=== PATIENT | female | born 1950 | race Caucasian/White ===

== ENCOUNTER 2019-04-25 21:24 | Inpatient (IN) ==
[2019-04-25 22:25] LABS: BASO# 0.02 X1000 (0.0-0.2); BASO% 0.2 % (0.0-0.8); EOS# 0.01 X1000 (0.0-0.7); EOS% 0.1 % (0.0-10.0); HEMATOCRIT 43.6 % (37.0-47.0); HEMOGLOBIN 14.9 g/dL (12.0-16.0); IMM GRAN# 0.07 X1000 (0.0-0.04); IMM GRAN% 0.6 % (0.0-0.5); LYMPH# 1.43 X1000 (1.2-3.4); LYMPH% 12.6 % (20.5-51.1); MCH 29.6 PG (27-31); MCHC 34.2 g/dL (33-37); MCV 86.7 FL (81-99); MONO# 0.51 X1000 (0.11-0.59); MONO% 4.5 % (1.7-9.3); MPV 10.2 FL (7.4-10.4); PLT 272 X1000 (130-400); RBC 5.03 XMIL (4.2-5.4); RDW 12.9 % (11.5-14.5); WBC 11.34 X1000 (4.8-10.8)
[2019-04-25 22:52] LABS: INR 0.98; PROTIME 13.1 Seconds (11.0-16.0)
[2019-04-25 22:53] LABS: PTT 26.6 Seconds (22.3-41.8)
[2019-04-25 22:56] LABS: ALB/GLOB RATIO 1.5; ALBUMIN 4.4 g/dL (3.5-5.0); CALCIUM 9.7 mg/dL (8.8-10.2); CREATININE 1.3 mg/dL (0.5-0.9); POTASSIUM 3.9 mmol/L (3.5-5.1); TOTAL BILIRUBIN 0.38 mg/dL (0.20-1.00); TOTAL PROTEIN 7.3 g/dL (6.3-8.3)
[2019-04-25] MEDS ORDERED: NS 1,000 ML IV ONE (23:29)
[2019-04-25] MEDS ORDERED: BENTYL PO ONE (23:29)
--- NOTE | 2019-04-25 23:55 | PROVIDER DOCUMENTATION ---
This chart was entered by Sarah Cochran Scribe, acting as scribe for Ryder Ibarra DO. HPI-Abdominal Pain/GI Problem - General Chief Complaint: GI Bleed Stated Complaint: possible gi bleed Time Seen by Provider: 04/25/19 21:58 Source: patient Allergies/Adverse Reactions: Patient Allergies Allergy/AdvReac Type Severity Reaction Status Date / Time Penicillins Allergy Severe ANAPHYLAXIS Verified 03/26/14 05:02 Home Medications: Home Medication List Medication Instructions Recorded Confirmed Last Taken Type Hydrocodone/APAP 10 mg/325 mg 1 each PO Q4H PRN PRN #0 tablet 03/31/14 Unknown Rx [[place]-10] LISINOpril [Prinivil] 20 mg PO DAILY #0 tablet 03/31/14 Unknown Rx - History of Present Illness-ABD Nature of Presenting Problems: Pt is 69/F presenting to ED w/ epigastric pain, blood in diarrhea as well as vomiting. Pt sts that the sx started around 2:30 today and have gotten worse. She has had about 5 episodes of bloody diarrhea and 3 of vomiting, those did not have any blood. Pt sts that she is now dizzy and has a headache as well. hx of hemorrhoids. Abdominal Pain Onset Location: reports: epigastric Pain Radiation: reports: no radiation Quality of Pain: reports: tightness Severity in ED: reports: moderate Onset/Duration: reports: 4-6 hours ago Timing: reports: still present Activities at Onset: reports: none Exposure to sick contacts?: No Modifying Factors: improves with: nothing Associated Symptoms: reports: chest pain, diarrhea, dizziness, headaches, nausea , vomiting. denies: fatigue, shortness of breath Last BM: this evening Dark Stools Present?: reports: bright red blood Rectal Bleeding: reports: blood mixed with stool Rectal Pain: reports: none Emesis Description: reports: clear Bruising or Bleeding Gums?: No Similar Symptoms Previously?: No Recently seen or treated by another doctor?: No Review of Systems - Adult - REVIEW OF SYSTEMS - ADULT Constitutional: reports: no symptoms reported Eyes: reports: no symptoms reported Ears, Nose, Mouth & Throat: reports: no symptoms reported Cardiovascular: reports: no symptoms reported, chest pain Respiratory: reports: no symptoms reported Gastrointestinal: reports: no symptoms reported. denies: abdominal pain, nausea, vomiting Genitourinary: reports: no symptoms reported Musculoskeletal: reports: no symptoms reported Integumentary: reports: no symptoms reported Neurological: reports: dizziness/vertigo, headache/migraines Psychiatric: reports: no symptoms reported Endocrine: reports: no symptoms reported Hematologic/Lymphatic: reports: no symptoms reported Allergic/Immunologic: reports: no symptoms reported All Other Systems: Reviewed and Negative Past History - Adult - PAST MEDICAL HISTORY-ADULT Review of Records: reports: Old Records Reviewed, Nursing Assessment Review, Medications Reviewed, Social history reviewed & non-contributory. Cardiovascular: reports: HTN. denies: CAD, CHF Respiratory: reports: denies history Gastrointestinal: reports: denies history - SOCIAL HISTORY Smoking: denies, non-smoker Substance Use: none/never Living Situation: family Physical Exam-General - PHYSICAL EXAM-ADULT Initial Vital Signs Reviewed: Yes - CONSTITUTIONAL General Appearance: appears well, alert, mild distress - EYES Eyes: PERRL/EOMI, pink conjunctivae - HEAD, EARS, NOSE, MOUTH & THROAT HENMT: normocephalic/atraumatic, moist mucous membranes, normal ENT inspection, TMs normal, pharynx normal - NECK Neck: non-tender, full range of motion, supple, normal inspection - RESPIRATORY Respiratory: lungs clear, other (chest tenderness upon palpation) - CARDIOVASCULAR Cardiovascular: regular rate, rhythm - GASTROINTESTINAL (ABDOMEN) Abdominal Exam: tenderness - GENITOURINARY Rectal Exam: normal exam, normal rectal tone, hemorrhoids. negative: black stool - LYMPHATIC Lymphatic: no adenopathy - MUSCULOSKELETAL Back Exam: normal inspection Extremity: normal range of motion, non-tender, normal gait, normal inspection - SKIN Integumentary: normal color, warm/dry - NEUROLOGIC Neurologic: grossly normal - PSYCHIATRIC Psych/Mental Status: normal mood/affect, normal thought content, normal thought process, oriented x 3 Progress - PLAN OF CARE/RESULTS Progress/Plan/Lab Results: Orders Category Date Time Status Saline Loc NOW Care 04/25/19 21:57 Active AMYLASE [CHEM] Stat Lab 04/25/19 22:02 Received CBC WITH ELECTRONIC DIFF [HEME] Stat Lab 04/25/19 22:02 Results CK PROFILE [SP CHEM] Stat Lab 04/25/19 22:02 Received COMPREHENSIVE METABOLIC PANEL [CHEM] Stat Lab 04/25/19 22:02 Received LIPASE [CHEM] Stat Lab 04/25/19 22:02 Received OCCULT BLOOD SCREENING [STOOL] Stat Lab 04/25/19 22:18 Ordered PROTIME WITH INR [COAG] Stat Lab 04/25/19 22:02 Received PTT [COAG] Stat Lab 04/25/19 22:02 Received TROPONIN T Stat Lab 04/25/19 22:02 Received TYPE & SCREEN [BBK] Stat Lab 04/25/19 22:14 Received EKG [EKG] Stat Ther 04/25/19 21:53 Ordered Result Diagrams: 04/25/19 22:02 04/25/19 22:02 - EKG 1 Time of EKG reading by physician:: 22:16 EKG Read and Signed by:: Ryder Ibarra EKG Interpretation (*Must complete 3 of following elements*): Abnormal (sinus tachycardia, Nonspecific ST and T wave abnormality, Abnormal ECG) Rate: 106 Rhythm: sinus tachycardia [place]: normal QRS: normal - CONSULTS/PCP/HOSPITALIST Notification #1 *Consult/PCP/Hospitalist*: Lucius Time Discussed: 23:50 Reason/Comments: will admit/see in ED Consult Disposition: Admit Departure - Departure Date of Disposition Decision: 04/25/19 Time of Disposition Decision: 23:54 DIAGNOSIS: Rectal bleeding, Abdominal pain Disposition: ADMITTED INPATIENT 09 Certified Medical Emergency: Emergent Condition: Stable Referrals and Follow-Ups: Duke Kan MD [Primary Care Provider] - - Critical Care Note This patient required my direct & personal management of CC.: Yes Attestation - Physician/ JOSSUE Attestation Patient care was provided by Advanced Practice Provider:: No The physician spent face to face time with patient:: Yes Advanced Practice Provider documentation review:: Supervising physician onsite and consulted in the evaluation and care of this patient. The physician did have a face to face encounter with the patient. This chart was documented by the indicated scribe, (Sarah Cochran, [place]) and accurately reflects the services I performed and decisions made by , Ryder Ibarra DO, as attested by the provider's signature.
[2019-04-26] MEDS ORDERED: PHENERGAN IV ONE (00:14)
[2019-04-26] MEDS ORDERED: SODIUM CHLORIDE 0.9% INJ ONE (00:14)
[2019-04-26 02:18] LABS: HEMOGLOBIN A1C 6.3 % (4.8-6.0)
[2019-04-26] MEDS ORDERED: SODIUM CHLORIDE 0.9% INJ PRN (02:25)
--- NOTE | 2019-04-26 02:36 | HISTORY AND PHYSICAL ---
CHIEF COMPLAINT: Blood in stool. HISTORY OF PRESENT ILLNESS: Ms. Rodriguez is a pleasant 69-year-old female who comes in tonight after having a day worth of nausea and vomiting and started having bright red blood in her stool. Stated that it was liquid diarrhea with blood that started yesterday around 2:30 p.m. and consistently got worse. She had around 5 episodes of bloody diarrhea, 3-4 episodes of vomiting. There was no blood in her emesis. She did complain of dizziness yesterday as well as a headache. She does have a history of migraines as well, as well as a history GERD, hemorrhoids and hypertension. Stated that overall she just continued to feel dizzy today and then the blood in her stools began so she came into the emergency room. Occult stool was tested which was positive for blood. Her hemoglobin and hematocrit were stable. She will be admitted to the medical floor for further evaluation and treatment. PAST MEDICAL HISTORY: See HPI. She has had epidural blocks in her back. PREVIOUS SURGICAL HISTORY: 1. Cholecystectomy. 2. Partial hysterectomy, then total hysterectomy. SOCIAL HISTORY: Lives at home with family. No alcohol, tobacco or illicit drugs. FAMILY HISTORY: Father had lung and brain cancer. Mother had hypertension and dementia. ALLERGY: Penicillin causing anaphylaxis. REVIEW OF SYSTEMS: Fourteen-point review of systems conducted with the patient. Pertinent positives listed above in the HPI. All other systems reviewed and found to be negative. PHYSICAL EXAMINATION: VITAL SIGNS: Temperature 97.5, pulse 90, respirations 16, blood pressure 123/99, oxygen saturation 96% on room air. GENERAL: A pleasant, obese 69-year-old female lying in the ER stretcher, answers all questions appropriately. She is alert and oriented times 3. HEENT: Head is atraumatic, normocephalic. Pupils equal, round, reactive to light. Extraocular eye movement intact. Sclerae are anicteric. Conjunctiva is pink. Oral mucosa is mildly dry. NECK: Supple. No JVD. No thyromegaly. Trachea is midline. No cervical lymphadenopathy. CARDIAC: S1, S2 appreciated. No murmurs, gallops, rubs. LUNGS: Clear to auscultation bilaterally. No rhonchi, wheezes, rales. Symmetric rise and fall with respirations. ABDOMEN: Soft, nondistended, tender diffusely, greatest area of tenderness in the left lower quadrant. Bowel sounds present all 4 quadrants, normoactive. No pulsatile mass. No organomegaly. EXTREMITIES: No clubbing, cyanosis. One-plus pitting edema in bilateral feet. Trace edema from mid calf down, nonpitting. Two-plus pedal pulses. GENITOURINARY: No bladder distention. Patient voids. Otherwise deferred. NEUROLOGICAL: Alert and oriented times 3. Cranial nerves 2 through 12 grossly intact. DIAGNOSTIC DATA: CT of the abdomen and pelvis is pending. LABORATORY DATA: WBC 11.34. Hemoglobin 14.9. Hematocrit 43.6. Platelet count 272. Sodium 140. Potassium 3.9. Chloride 97. Carbon dioxide 22. BUN 26. Creatinine 1.3. Glucose 181. ASSESSMENT AND PLAN: 1. Gastrointestinal bleed, is likely a lower gastrointestinal bleed. We will start Nexium IV 40 mg q.12 hours. Consult GI. Trend hemoglobin and hematocrit. NPO after midnight. 2. Fluid volume depletion, aware. 3. Acute kidney injury secondary to number 2. She was given fluids in the emergency room which will be continued. Recheck laboratory data. 3. Hyperglycemia. Check hemoglobin A1c. Patient does not carry a diagnosis of diabetes mellitus. 4. Gastroesophageal reflux disease, aware. See above. Further recommendations per patient clinical course. Dictated by EZ Zambrano for Duke Kan MD cc: EZ Zambrano MD
[2019-04-26] MEDS: NS 1,000 ML IV SCH ×2 (02:46→15:34)
[2019-04-26] MEDS: SODIUM CHLORIDE 0.9% INJ SCH ×2 (02:46→12:40)
[2019-04-26] MEDS: NEXIUM IV SCH ×2 (02:46→12:40)
--- NOTE | 2019-04-26 03:36 | HISTORY AND PHYSICAL ---
ADDENDUM: Patient seen and examined by myself. Full note dictated and discussed with nurse practitioner. Patient presented to the hospital after feeling dizzy, lightheaded and headaches. Typically takes Excedrin Migraine only when she has a severe headache and she did take some over the past day or so. She also complains of diarrhea. Denies any hematemesis. States that she has had bright red blood in her stool. She has had abdominal pain. Has a history of gallbladder surgery and hysterectomy. Does not smoke or drink. We are going to admit her to the hospital. Hemoglobin and hematocrit currently are perfectly stable at 14 and 36. Creatinine is mildly elevated at 1.3 with her previous at 0.8 and BUN is elevated at 26 with her previous from 2014 at 7. Check serial hemoglobin and hematocrit. CT is pending and we will follow. cc: Duke Kan MD
--- NOTE | 2019-04-26 05:34 | Diag Imaging Result Doc PS360 ---
EXAM: CT ABDOMEN/PELVIS W/O CONTRAST HISTORY: abdominal pain/ rectal bleeding TECHNIQUE: CT abdomen and pelvis without oral or intravenous contrast COMPARISON: None. FINDINGS: There is fatty infiltration of the liver. The gallbladder has been removed. Tiny hiatal hernia. Normal spleen, pancreas, and adrenal glands. No renal stones. No hydronephrosis. No aortic aneurysm. Mild atherosclerosis. No inflammation about the cecum. No abscess. No bowel obstruction. There are scattered colonic diverticula. The mid and distal colon are not distended. The uterus has been removed. No pelvic mass. The urinary bladder is not distended. IMPRESSION: 1.Small hiatal hernia 2.There is fatty infiltration of the liver 3.Cholecystectomy 4.Colonic diverticulosis 5.Hysterectomy 6.A preliminary report was given at 12:57 AM This exam was performed using automated exposure control, adjustment of mA or kV according to patient size, and/or use of iterative reconstruction technique. Electronically signed by Geoffrey Dorsey 04/26/2019 5:31 AM
[2019-04-26 06:34] LABS: BASO# 0.02 X1000 (0.0-0.2); BASO% 0.2 % (0.0-0.8); EOS# 0.04 X1000 (0.0-0.7); EOS% 0.4 % (0.0-10.0); HEMATOCRIT 41.2 % (37.0-47.0); HEMOGLOBIN 13.6 g/dL (12.0-16.0); IMM GRAN# 0.03 X1000 (0.0-0.04); IMM GRAN% 0.3 % (0.0-0.5); LYMPH# 2.18 X1000 (1.2-3.4); LYMPH% 20.1 % (20.5-51.1); MCH 29.5 PG (27-31); MCV 89.4 FL (81-99); MONO# 0.99 X1000 (0.11-0.59); MONO% 9.1 % (1.7-9.3); MPV 9.9 FL (7.4-10.4); NEUT% 69.9 % (42.2-75.2); PLT 244 X1000 (130-400); RBC 4.61 XMIL (4.2-5.4); RDW 13.1 % (11.5-14.5); WBC 10.86 X1000 (4.8-10.8)
[2019-04-26 06:57] LABS: CREATININE 1.1 mg/dL (0.5-0.9); POTASSIUM 4.1 mmol/L (3.5-5.1)
[2019-04-26 11:45] LABS: HEMATOCRIT 40.5 % (37.0-47.0); HEMOGLOBIN 13.4 g/dL (12.0-16.0)
[2019-04-26] MEDS: FLAGYL 250 MG/NS 250 MG/50 ML IVPB IV SCH ×3 (12:17→22:08)
[2019-04-26] MEDS: CIPRO 400 MG/D5W 400 MG/200 ML IVPB IV SCH ×2 (12:40→22:59)
[2019-04-26] MEDS: FIORICET PO PRN (12:40)
--- NOTE | 2019-04-26 13:17 | PROGRESS NOTE ---
DATE: 04/26/2019 SUBJECTIVE: Ms. Rodriguez was admitted early this morning, a patient of Dr. Duke Kan. She presented to the hospital feeling dizzy, lightheaded, headaches. She typically takes Excedrin migraine. She has severe headache and she did take several in the last day or so. She had some bright red blood in her stool and some epigastric discomfort. She has a history of gallbladder surgery, cholecystectomy and hysterectomy. PAST MEDICAL HISTORY: 1. Status post cholecystectomy. 2. Partial hysterectomy and then total hysterectomy. Admitted with gastrointestinal bleed and put on Nexium 40 mg q.12h. Follow hemoglobin and hematocrit, hematocrit 40, hemoglobin 13. Electrolytes unremarkable. Hemoglobin A1c was 6.3. IMPRESSION: 1. Gastrointestinal bleed. Started on Nexium 40 mg IV q.12h. GI will follow. 2. Fluid volume depletion. Aware. 3. Acute kidney injury secondary to #2. 4. Hyperglycemia. Hemoglobin A1c looks appropriate. 5. Gastroesophageal reflux disease. Creatinine has come down to 1.1. We will go ahead. I think she is on full liquid diet. Dr. Caicedo to see. She was having some diarrhea and complained of loose stool. She has no history of recent antibiotics. Dr. Caicedo has started her on Flagyl and ciprofloxacin. cc: Shantanu Mirza MD
--- NOTE | 2019-04-26 14:24 | PALLIATIVE CARE CONSULTATION ---
DATE: 04/26/2019 Malini Rodriguez who is a pleasant 69-year-old lady who was having nausea, vomiting and diarrhea that started the day before. After several episodes she had bright red blood in the stool and felt dehydrated and dizzy. She came in with a normal H and H and admitted for hydration and further management. She is currently on BPA. PAST MEDICAL HISTORY: Epidural back. PREVIOUS SURGICAL HISTORY: Cholecystectomy, partial hysterectomy and total hysterectomy. SOCIAL HISTORY: Lives at home. No alcohol, tobacco or drugs. FAMILY HISTORY: Positive for lung and brain cancer. ALLERGIES: Penicillin. REVIEW OF SYSTEMS: Otherwise negative other than the dizziness. PHYSICAL EXAMINATION: Vital Signs: Temperature 97 degrees, pulse 90, respirations 16, blood pressure 123/99, O2 saturation 96. General: Obese 69-year-old lady in no acute distress. HEENT: No scleral icterus or conjunctival pallor. She appears to be hydrated now. Heart: Normal. Lungs: Normal. Abdomen: Soft, nondistended. Mild diffuse tenderness. No rebound, guarding or rigidity. Bowel sounds present. Extremities: Unremarkable. Neurological: Negative. LABORATORY DATA: Hemoglobin and hematocrit is stable. Creatinine has come down to 1.1. IMPRESSION AND PLAN: 1. Gastroenteritis. The bleed could be from the diarrhea and such as hemorrhoids. There is no evidence of any proctitis and colitis on CT. However we will treat with 24 hours of antibiotics. 2. Fluid depletion is getting better. 3. Mild acute kidney injury has been corrected. 4. GERD. Continue symptomatic treatment. I will review her records to see when she had a endoscopy done but I do not think she needs any endoscopy at this point. Advance the diet as tolerated. cc: MD Shantanu Armstrong MD
[2019-04-26 17:54] LABS: HEMATOCRIT 41.9 % (37.0-47.0); HEMOGLOBIN 13.9 g/dL (12.0-16.0)
[2019-04-27 00:46] LABS: HEMATOCRIT 37.1 % (37.0-47.0); HEMOGLOBIN 12.3 g/dL (12.0-16.0)
[2019-04-27] MEDS: SODIUM CHLORIDE 0.9% INJ SCH (00:50)
[2019-04-27] MEDS: NEXIUM IV SCH ×2 (00:50→17:47)
[2019-04-27] MEDS: NS 1,000 ML IV SCH ×2 (03:49→17:45)
[2019-04-27] MEDS: FLAGYL 250 MG/NS 250 MG/50 ML IVPB IV SCH ×4 (03:49→23:00)
[2019-04-27 06:58] LABS: HEMATOCRIT 36.6 % (37.0-47.0); HEMOGLOBIN 11.9 g/dL (12.0-16.0)
[2019-04-27] MEDS: CIPRO 400 MG/D5W 400 MG/200 ML IVPB IV SCH ×2 (11:01→22:40)
[2019-04-27] MEDS: FIORICET PO PRN (11:01)
[2019-04-27] MEDS: MORPHINE IV PRN ×2 (11:41→20:33)
[2019-04-27] MEDS: PHENERGAN IV PRN (11:41)
[2019-04-27 12:24] LABS: HEMATOCRIT 39.9 % (37.0-47.0); HEMOGLOBIN 13.1 g/dL (12.0-16.0)
--- NOTE | 2019-04-27 13:22 | PROGRESS NOTE ---
DATE: 04/27/2019 SUBJECTIVE: Ms. Rodriguez says she just does not feel good. She had some dark stools with dark black, it sounds like melena, and a lot of cramping in her abdomen. OBJECTIVE: Temperature 98.0, pulse 58, respirations 16, blood pressure 140/63. Pupils are equal and round. No distended neck veins. Lungs are clear in all lung campos. Cardiovascular Examination: Regular rhythm and rate without murmur or S3. Urine output is 2500 mL. ASSESSMENT AND PLAN: 1. Gastroenteritis. Could be bleeding from the diarrhea, from hemorrhoids, but she has some dark stools as well so could have upper gastrointestinal irritation as well. There is no evidence of proctitis or colitis on CT scan. Continue present antibiotics. 2. Fluid depletion, getting better. 3. Mild acute kidney injury, which is corrected. 4. Gastroesophageal reflux disease. REVIEW OF ORDERS: She is on Nexium 40 mg IV q.12, on Flagyl 250 mg IV q.6, and Cipro 400 mg IV q.12. Continue present fluids. Hematocrit is 39, hemoglobin 13. Electrolytes look good. Creatinine has come down from 1.3 to 1.1. She is on full liquid diet at this time. For her headaches, we are giving her Fioricet. cc: Shantanu Mirza MD
[2019-04-28] MEDS: FLAGYL 250 MG/NS 250 MG/50 ML IVPB IV SCH ×4 (04:31→21:48)
[2019-04-28] MEDS: NEXIUM IV SCH ×2 (06:13→18:56)
[2019-04-28] MEDS: CIPRO 400 MG/D5W 400 MG/200 ML IVPB IV SCH ×2 (11:14→21:49)
[2019-04-28] MEDS ORDERED: DIPRIVAN 1% ONE (11:50)
[2019-04-28] MEDS ORDERED: XYLOCAINE-MPF 2% ONE (11:51)
--- NOTE | 2019-04-28 12:49 | PROGRESS NOTE ---
DATE: 04/28/2019 SUBJECTIVE: Ms. Rodriguez is feeling much better today. They are planning on doing an EGD this morning. OBJECTIVE: Temperature 98.1 degrees, pulse 64, respirations 15, blood pressure 171/81. Blood pressures have been between 141-171/56-81. Lungs are clear in all lung campos. Cardiovascular Examination: Regular rhythm and rate without murmur or S3. Abdomen is soft. Skin is warm and dry. ASSESSMENT AND PLAN: 1. Gastroenteritis, having bleeding from diarrhea and possibly from hemorrhoids. It is bright red blood. She also had some dark stools, possible melena. 2. Fluid depletion, which is resolved. 3. Mild acute kidney injury, which is corrected. 4. History of gastroesophageal reflux disease. LABS: Her lab from yesterday, hematocrit was stable at 39, hemoglobin 13. I think the plan is for an EGD this morning. cc: Shantanu Mirza MD
[2019-04-28] MEDS ORDERED: FENTANYL ONE (13:12)
--- NOTE | 2019-04-28 13:46 | ENDOSCOPY OPERATIVE NOTE ---
[facility]IVE NOTE , PATIENT: Malini Rodriguez ADMISSION DATE: 04/28/2019 [facility] [id number] [facility] 1950 [id number] EGD PROCEDURE REPORT PROCEDURE DATE: 04/28/2019 SURGEON: Andrew Pastor MD STATUS: inpatient APPLICATION PERFORMANCE ENGINEER: Caroline Jerez and Patrice Hensley PREOPERATIVE DIAGNOSIS: The patient is a 69 yr old female here for an EGD due to epigastric abdomina l pain, nausea, and vomiting. PROCEDURE PERFORMED: EGD w/ biopsy MEDICATIONS: Per Anesthesia TOPICAL ANESTHETIC: none CONSENT: The patient understands the risks and benefits of the procedure and understands that these r isks include, but are not limited to: sedation, allergic reaction, infection, perforation and/or bleeding. Alternative means of evaluation and treatment include, among others: physical exam, x-rays, and/or surgical intervention. The patient elects to proceed with this endoscopic procedure. HISORY AND PHYSICAL: 04/28/2019 function. Hand hygiene and appropriate measures for infection prevention was taken. After the risks, benefits and alternatives of the procedure were thoroughly explained, Informed consent was verified, confirmed and timeout was successfully executed by the treatment team. The patient was anesthetized with topical anesthesia and the [id number] ([id number]) endoscope was introduced through the mouth and advanced to the second portion of the duoden um. Retroflexion was performed in the stomach and revealed no abnormalities. The gastroscope was then slowly withdraw n and removed. ESOPHAGUS: The mucosa of the esophagus appeared normal. STOMACH: Mild gastritis (inflammation) was found in the gastric antrum. Multiple biopsies were perfo rmed using cold forceps. Sample sent for histology. There was no evidence of AVM, Ulcers or tumors noted. DUODENUM: The duodenal mucosa showed no abnormalities. SPECIMENS REMOVED: No ADVERSE EVENTS: There were no complications. POSTOPERATIVE DIAGNOSIS: 1. The mucosa of the esophagus appeared normal 2. Gastritis (inflammation) was found in the gastric antrum; multiple biopsies were performed 3. The duodenal mucosa showed no abnormalities RECOMMENDATIONS: 1. Follow-up biopsy results in 2 weeks 2. Start Clear liquid diet for 2 Day(s) 3. Return to floor when standard parameters are met 4. Schedule for colonoscopy tomorrow. REPEAT EXAM: Andrew Pastor MD eSigned: Andrew Pastor MD 04/28/2019 1:46 PM cc: PATIENT NAME: Malini Rodriguez MR#: [id number]
[2019-04-28] MEDS ORDERED: GOLYTELY PO ONE (14:00)
[2019-04-28] MEDS: NS 1,000 ML IV SCH (16:40)
[2019-04-28] MEDS: PHENERGAN IV PRN (18:56)
[2019-04-29] MEDS: FLAGYL 250 MG/NS 250 MG/50 ML IVPB IV SCH ×4 (04:24→21:47)
[2019-04-29] MEDS: NS 1,000 ML IV SCH ×3 (04:25→10:57)
[2019-04-29] MEDS: NEXIUM IV SCH ×2 (06:04→06:30)
[2019-04-29] MEDS: PRILOSEC PO SCH ×2 (06:10→10:57)
[2019-04-29] MEDS: SODIUM CHLORIDE 0.9% INJ SCH (06:30)
[2019-04-29] MEDS ORDERED: SODIUM CHLORIDE 0.9% INJ SCH (07:00)
[2019-04-29 07:14] LABS: HEMATOCRIT 34.5 % (37.0-47.0); HEMOGLOBIN 11.3 g/dL (12.0-16.0); MCHC 32.8 g/dL (33-37); MCV 91.5 FL (81-99); MPV 9.7 FL (7.4-10.4); RBC 3.77 XMIL (4.2-5.4); RDW 13.2 % (11.5-14.5); WBC 6.93 X1000 (4.8-10.8)
[2019-04-29] MEDS ORDERED: XYLOCAINE-MPF 2% ONE (07:24)
[2019-04-29] MEDS ORDERED: ROBINUL ONE (07:24)
[2019-04-29] MEDS ORDERED: DIPRIVAN 1% ONE ×2 (07:24→08:10)
[2019-04-29 07:53] LABS: CALCIUM 8.4 mg/dL (8.8-10.2); POTASSIUM 3.6 mmol/L (3.5-5.1)
--- NOTE | 2019-04-29 08:27 | ENDOSCOPY OPERATIVE NOTE ---
[facility] ENDOSCOPY OPERATIVE NOTE , PATIENT: Malini Rodriguez ADM DATE: 04/29/2019 MR #: [id number] : 1950 COLONOSCOPY PROCEDURE REPORT PROCEDURE DATE: 04/29/2019 SURGEON: Andrew Pastor MD STATUS: inpatient NETWORK DESIGN ARCHITECT: Elina Vidales and Patrice Hensley PREOPERATIVE DIAGNOSIS: The patient is a 69 yr old female here for a colonoscopy due to hematochezia . PROCEDURE PERFORMED: Colonoscopy with snare polypectomy Colonoscopy with biopsy MEDICATIONS: Per Anesthesia PREP TYPE: GoLytely
[2019-04-29] MEDS: CIPRO 400 MG/D5W 400 MG/200 ML IVPB IV SCH ×2 (10:51→21:47)
[2019-04-29] MEDS: FIORICET PO PRN (10:51)
[2019-04-29] MEDS: PRINZIDE 10/12.5MG PO SCH (10:52)
[2019-04-29] MEDS: ZOFRAN IV PRN (10:58)
[2019-04-29] MEDS ORDERED: LASIX IV ONE (15:50)
[2019-04-29] MEDS ORDERED: PROTONIX IV SCH (18:00)
--- NOTE | 2019-04-29 19:14 | PROGRESS NOTE ---
DATE: 04/29/2019 SUBJECTIVE: The patient just returned from EGD. She states that she feels nauseated. She also complains of swelling in her arms and legs. OBJECTIVE: Vital Signs: Temperature 97.9 degrees, blood pressure 155/62, heart rate 69, respirations 18, O2 saturation 94% on room air. General: This is a morbidly obese female sitting at the edge of the bed in no acute distress. Heart: S1, S2 normal. Regular rate and rhythm. Lungs: Equal air entry bilaterally. No wheezing. No rales. Abdomen: Positive bowel sounds. Soft, nontender, nondistended. Extremities: 2+ edema in the lower extremities. Neurologic: The patient is alert and oriented x4. LABS: White blood cell count 6.9, hemoglobin 11, hematocrit 34, platelets 171,000. Sodium 142, potassium 3.6, chloride 105, CO2 26, BUN 8, creatinine 1, glucose 101, calcium 8.4. ASSESSMENT AND PLAN: 1. Colitis. Continue on the current antibiotic regimen. 2. Status post polypectomy. The patient will follow up with Dr. Pastor as outpatient to get the results of the pathology on the polyps that were removed. 3. Morbid obesity. The patient has been counseled about weight loss and proper diet. 4. Lower extremity edema. We will check an echocardiogram to assess for heart failure. In the meantime, we will give the patient a dose of Lasix today and monitor her response. 5. Deep vein thrombosis prophylaxis. Continue with sequential compression devices. cc: Sintia Hammer MD [facility]
[2019-04-30] MEDS: FLAGYL 250 MG/NS 250 MG/50 ML IVPB IV SCH ×4 (03:53→21:35)
[2019-04-30] MEDS: PRILOSEC PO SCH (06:54)
[2019-04-30 08:07] LABS: HEMATOCRIT 37.7 % (37.0-47.0); HEMOGLOBIN 12.5 g/dL (12.0-16.0); MCH 29.7 PG (27-31); MCHC 33.2 g/dL (33-37); MCV 89.5 FL (81-99); MPV 10.2 FL (7.4-10.4); RBC 4.21 XMIL (4.2-5.4); RDW 13.3 % (11.5-14.5); WBC 7.12 X1000 (4.8-10.8)
[2019-04-30 08:23] LABS: CALCIUM 9.2 mg/dL (8.8-10.2); CREATININE 1.5 mg/dL (0.5-0.9); POTASSIUM 3.5 mmol/L (3.5-5.1)
[2019-04-30] MEDS: PRINZIDE 10/12.5MG PO SCH (10:54)
[2019-04-30] MEDS: CIPRO 400 MG/D5W 400 MG/200 ML IVPB IV SCH ×2 (10:54→22:46)
--- NOTE | 2019-04-30 14:47 | GASTROENTEROLOGY PROGRESS NOTE ---
DATE: 04/30/2019 SUBJECTIVE: Patient states she is feeling better. She has a myocardial perfusion scan scheduled for today. She has denied any further evidence of active GI bleeding. She had an EGD on 04/28/2019 that showed gastritis. Biopsy showed chronic inactive gastritis. She had a colonoscopy on 04/29/2019 that showed colon polyps, diverticulosis, and colitis. Colitis most likely infectious. She is on antibiotics. Pathology is pending. OBJECTIVE: Vital Signs: Temperature 98.1 degrees, pulse 77, respirations 18, blood pressure 141/66. General: Patient is awake, alert, in no acute distress. LABORATORY: Hematology 7.12, hemoglobin 12.5, hematocrit 37.7, MCV 89.5, platelets 200,000. Chemistry: Sodium 141, potassium 3.5, chloride 100, CO2 30, BUN 8, creatinine 1.5, glucose 153. ASSESSMENT AND PLAN: 1. Colitis, most likely infectious. Continue on antibiotic regimen. 2. Colon polyps with pathology pending. 3. Recent gastrointestinal bleed has resolved. Hemoglobin and hematocrit are stable. 4. Chest pain. Patient has a myocardial perfusion scan scheduled for today. 5. Continue current medications. Continue antibiotics. Recommend patient follow up with us as an outpatient. Her colonoscopy pathology is pending. Further plans will be made as needed. I have discussed this case with Dr. Pastor. Dictated by EZ Durand for Andrew Pastor MD cc: EZ Wooten MD [facility]
--- NOTE | 2019-04-30 19:22 | PROGRESS NOTE ---
DATE: 04/30/2019 SUBJECTIVE: The patient is resting comfortably. She has no complaints. OBJECTIVE: Vital Signs: Temperature 98 degrees, blood pressure 142/78, heart rate 97, respirations 22, O2 saturations 96% on room air. General: This is a morbidly obese female lying in bed in no acute distress. Heart: S1, S2 normal. Regular rate and rhythm. Lungs: Clear to auscultation bilaterally. Abdomen: Positive bowel sounds. Soft, nontender, nondistended. Extremities: 2+ edema. Neurologic: The patient is alert and oriented x4. LABORATORY DATA: Sodium 141, potassium 3.5, chloride 100, CO2 30, BUN 8, creatinine 1.5, glucose 101. ASSESSMENT AND PLAN: 1. Colitis. Continue on antibiotic therapy. 2. Dyspnea with peripheral edema. We will await the results of the echocardiogram. The patient is scheduled to undergo a Lexiscan tomorrow. 3. Morbid obesity. The patient has been counseled about weight loss and proper diet. 4. Status post polypectomy. We will await the results of the pathology report. 5. Deep vein thrombosis prophylaxis. Continue with SCDs. 6. Acute kidney injury on chronic kidney disease. The patient's creatinine is slightly elevated today. This may be secondary to the Lasix. We will hold the Lasix today and monitor the patient closely. 7.Prediabetes. Continue to monitor closely. Patient has been counseled about weight loss and proper diet. cc: Sintia Hammer MD MTDD
--- NOTE | 2019-05-01 00:44 | ECHO REPORT ---
ORDER DATE: 04/29/2019 MEASUREMENTS: Left ventricular end-diastolic diameter 4.3. Septal thickness 1.2. Posterior wall thickness 1.2. Left ventricular internal diameter in systole 2.6. Aortic root 3.4. Left atrium 3.8. SUMMARY: 1. Technically difficult study due to limited acoustic window quality. 2. Very mild sclerosis of trileaflet aortic valve demonstrated with normal aortic valve opening evident. Peak gradient across the aortic valve is less than 10 mmHg. Mitral and tricuspid valves are without evidence of structural abnormality, while pulmonic valve was not wall not well demonstrated. There is trace tricuspid regurgitation. Aortic root is normal in size. 3. Normal left ventricular chamber size with mild concentric left ventricular hypertrophy is demonstrated. Estimated left ventricular ejection fraction appears to be approximately 65%. No regional wall motion abnormalities are evident. Doppler suggests grade 1 left ventricular diastolic dysfunction. Left atrium, right atrium, right ventricle are normal in size with grossly preserved right ventricular systolic function. 4. No pericardial effusion. 5. Inferior vena cava not well demonstrated. CONCLUSIONS: 1. Technically difficult study. 2. Very mild aortic valve sclerosis without stenosis. 3. Mild concentric left ventricular hypertrophy with estimated left ventricular ejection fraction approximately 65%. 4. Grade 1 left ventricular diastolic dysfunction suggested. cc: MD Sintia Ortiz MD
[2019-05-01] MEDS: FLAGYL 250 MG/NS 250 MG/50 ML IVPB IV SCH ×4 (04:39→22:21)
[2019-05-01] MEDS: PRILOSEC PO SCH (06:11)
[2019-05-01] MEDS ORDERED: LEXISCAN ONE (08:40)
[2019-05-01] MEDS: FIORICET PO PRN (10:33)
[2019-05-01] MEDS: PRINZIDE 10/12.5MG PO SCH (10:33)
[2019-05-01] MEDS: ZOFRAN IV PRN (10:33)
[2019-05-01 10:38] LABS: HEMATOCRIT 40.6 % (37.0-47.0); HEMOGLOBIN 13.4 g/dL (12.0-16.0); MCH 29.4 PG (27-31); MPV 10.2 FL (7.4-10.4); RBC 4.56 XMIL (4.2-5.4); RDW 13.5 % (11.5-14.5); WBC 7.89 X1000 (4.8-10.8)
[2019-05-01 11:13] LABS: CALCIUM 9.3 mg/dL (8.8-10.2); CREATININE 1.4 mg/dL (0.5-0.9); POTASSIUM 3.6 mmol/L (3.5-5.1)
[2019-05-01] MEDS: CIPRO 400 MG/D5W 400 MG/200 ML IVPB IV SCH ×2 (11:37→23:03)
--- NOTE | 2019-05-01 13:21 | Diag Imaging Result Document ---
PROCEDURE NAME: MYOCARDIAL PERF SCAN, STR/REST - 05/01/2019 INDICATION: Chest pain. PROCEDURES PERFORMED: 1. Lexiscan stress. 2. One-day stress rest myocardial perfusion imaging. PROCEDURE IN DETAIL: Ms. Rodriguez was brought to the nuclear laboratory and had a resting study with injection of 15.1 mCi of technetium-99m sestamibi with the usual imaging protocol utilized. She subsequently was brought back and had a Lexiscan stress, and at peak stress had injection of 40.9 mCi of technetium-99m sestamibi with the usual imaging protocol utilized. FINDINGS: Lexiscan stress results: 1. Baseline EKG shows sinus rhythm. 2. Lexiscan stress did not demonstrate any clear evidence of ischemic-related EKG changes or significant arrhythmias during the course of the study. Perfusion imaging results: 1. No evidence of abnormal extracardiac uptake. 2. TID ratio of 0.94. 3. Perfusion imaging demonstrates a very small, extremely mild in intensity defect located in the mid inferolateral wall. If this represents ischemia, it is an extremely small burden. 4. Normal ejection fraction of 79%. End-diastolic volume 77. End-systolic volume 16. Normal wall motion. cc: MD Sintia Mckeon MD
--- NOTE | 2019-05-01 13:40 | Diag Imaging Result Doc PS360 ---
EXAM: CHEST-PORTABLE HISTORY: dyspnea TECHNIQUE: Portable chest COMPARISON: 03/27/2014 FINDINGS: The lungs are well expanded. The heart is not enlarged. The vessels are not distended. There are no infiltrates. No effusion identified. IMPRESSION: Negative exam. Electronically signed by Geoffrey Dorsey 05/01/2019 1:38 PM
--- NOTE | 2019-05-01 13:47 | PROGRESS NOTE ---
DATE: 05/01/2019 SUBJECTIVE: The patient is complaining of pain and swelling in her right upper extremity, as well as some redness in the area where she had a prior IV. She also states that she had chest pain and shortness of breath during her stress test this morning. OBJECTIVE: Vital Signs: Temperature 98 degrees, blood pressure 146/66, heart rate 77, respirations 20, O2 saturation is 95% on room air. General: This is a morbidly obese female lying in bed, in no acute distress. Heart: S1, S2 normal. Regular rate and rhythm. Lungs: Equal air entry bilaterally. No wheezing. No rales. No rhonchi. Abdomen: Positive bowel sounds. Soft, nontender, obese. Extremities: There is 2+ edema bilaterally. Neurologic: The patient is alert and oriented x4. Labs: Hemoglobin 13, hematocrit 40, platelets 220,000. Sodium 139, potassium 3.6, chloride 97, CO2 of 28, BUN 10, creatinine 1.4. ASSESSMENT AND PLAN: 1. Chest pain. The patient had a stress test this morning. We will await the results of this study. Also, cardiology has been consulted. 2. Right cephalic vein thrombosis. Aware. We will keep the patient's arm elevated. 3. Morbid obesity. The patient has been counseled about weight loss and proper diet. 4. Prediabetes. We will cover the patient with sliding scale insulin. 5. Status post polypectomy. We will await the results of the pathology report. 6. Colitis. Continue with antibiotic therapy. 7. Acute kidney injury on chronic kidney disease. Slightly improved today. We will continue to monitor closely. 8. Right upper extremity cellulitis. The patient has been started on Azactam. We will monitor her response. 9. Deep vein thrombosis prophylaxis. The patient is on lovenox. cc: Sintia Hammer MD MTDD
--- NOTE | 2019-05-01 14:10 | CARDIOLOGY CONSULTATION ---
DATE: 05/01/2019 REASON FOR CONSULTATION: Cardiology was consulted for edema and shortness of breath. HISTORY OF PRESENT ILLNESS: The patient is admitted with a gastrointestinal bleed. Ms. Rodriguez is a 69-year-old, lady who was admitted with nausea, vomiting, and had bright red blood in her stools. She states that she has been having diarrhea off and on in the past as well. She did complain of dizziness when she was admitted. She denies chest pain. She says she has had pedal edema for some time. In addition, has noticed edema on her fingers as well. This has been off and on. There are no palpitations. She denies chest pain suggestive of angina. PAST MEDICAL HISTORY: 1. Hypertension. 2. Cholecystectomy in the past. 3. Partial hysterectomy. HOME MEDICATIONS: Include: 1. Lisinopril/hydrochlorothiazide. 2. Omeprazole. 3. Aspirin. 4. Currently, she is on antibiotics, Flagyl and aztreonam, and Cipro for her colitis. REVIEW OF SYSTEMS: A 14-point review of systems was done. GI System: As above. Cardiovascular System: As above. Respiratory System: There is no history of cough, expectoration, hemoptysis. There is no history of fevers or chills. Endocrine System: Stable. PHYSICAL EXAMINATION: Vital Signs: Blood pressure 123/90. First and second heart sounds were heard. There was no S3 gallop. Respiratory System: Normal air entry. There are no crepitations or rhonchi. Abdomen: Soft. Bowel sounds were heard. Central Nervous System: Alert and oriented, was moving all 4 extremities. Examination of extremities revealed bilateral mild pedal edema. LABORATORY EXAMINATION: WBC 11.34, hemoglobin 14.9, hematocrit 43, platelet count of 272,000. Lowest hemoglobin and hematocrit were 11.9 and 36. Electrocardiogram revealed normal sinus rhythm. There were no ST-T changes to suggest ischemia. ASSESSMENT AND PLAN: Ms. Malini Rodriguez is a 69-year-old, lady who has obesity, hypertension, has had edema for some time of lower extremities, is admitted with a gastrointestinal bleed. Has undergone colonoscopy. The patient is diagnosed to have had arteriovenous malformations with colitis and is being treated for the same. From a cardiac standpoint, echocardiogram revealed preserved left ventricular systolic function. Her Cardiolite stress test done today, please see detailed report. There is no evidence of ischemia. Significant chest wall attenuation was noted. RECOMMENDATIONS: From a cardiac standpoint, I have not made any changes. As far as edema is concerned, it may be dependent edema. We will change her from lisinopril/hydrochlorothiazide to lisinopril plus Lasix 20 mg a day. She has obesity, may well have pickwickian syndrome. Would recommend sleep studies as outpatient. Thank you for the consult. We will follow hospital course. cc: Amado Rodriguez MD
[2019-05-01] MEDS: AZACTAM 1 GM in NS 50 ML IV SCH ×2 (14:23→21:09)
[2019-05-01] MEDS: LOVENOX SUBQ SCH (14:23)
[2019-05-01] MEDS: ALDACTONE PO SCH (14:23)
[2019-05-01] MEDS: LASIX PO SCH (14:23)
[2019-05-02] MEDS: FLAGYL 250 MG/NS 250 MG/50 ML IVPB IV SCH ×3 (05:19→18:35)
[2019-05-02] MEDS: PRILOSEC PO SCH (06:00)
[2019-05-02] MEDS: AZACTAM 1 GM in NS 50 ML IV SCH ×2 (06:01→18:35)
--- NOTE | 2019-05-02 07:15 | Extremity Venous Study ---
PROCEDURE NAME: Venous U/S Right Arm - 05/01/2019 REQUESTING PHYSICIAN: Dr. Sintia Hammer. STORE DELI MANAGER: Kami. INDICATIONS: Edema, pain and redness in the right arm. EQUIPMENT: [employer] Vivid E9 ultrasound system with a 9 L-D transducer. FINDINGS: Images of the right upper extremity venous system with comparison shot to the left subclavian vein were obtained in both sagittal and transverse planes. Doppler was used to evaluate veins for spontaneity, phasicity, respiratory excursion, and digital augmentation. RESULTS: Acute clot noted in the right cephalic vein from the mid upper arm to the proximal forearm. There appears to be no obvious deep venous thrombosis noted. INTERPRETATION: Acute clot noted in the right cephalic vein from the mid upper arm to the proximal forearm. cc: MD Sintia Valladares MD
[2019-05-02 08:13] LABS: HEMATOCRIT 40.1 % (37.0-47.0); MCH 29.5 PG (27-31); MCHC 32.4 g/dL (33-37); MCV 90.9 FL (81-99); MPV 10.2 FL (7.4-10.4); RBC 4.41 XMIL (4.2-5.4); RDW 13.6 % (11.5-14.5); WBC 6.28 X1000 (4.8-10.8)
[2019-05-02 08:22] LABS: CALCIUM 9.3 mg/dL (8.8-10.2); CHOLESTEROL 104 mg/dL (0-200); CREATININE 1.5 mg/dL (0.5-0.9); HDL 30 mg/dL (45-65); LDL 52 mg/dL; POTASSIUM 3.6 mmol/L (3.5-5.1); TRIGLYCERIDES 112 mg/dL (35-135); VLDL 22 mg/dL
[2019-05-02] MEDS ORDERED: PRINIVIL PO SCH (09:00)
[2019-05-02] MEDS ORDERED: ASPIRIN EC PO SCH (09:00)
[2019-05-02] MEDS: ALDACTONE PO SCH (09:36)
[2019-05-02] MEDS: LASIX PO SCH (09:36)
[2019-05-02] MEDS: CIPRO 400 MG/D5W 400 MG/200 ML IVPB IV SCH (10:20)
--- NOTE | 2019-05-02 14:02 | GASTROENTEROLOGY PROGRESS NOTE ---
DATE: 05/02/2019 SUBJECTIVE: Patient states she is feeling better. She is hoping to go home soon. She has had cardiac workup and cardiac evaluation. EGD on 04/28/2019 showed gastritis. Colonoscopy on 05/09/2019 showed colon polyps, diverticulosis and colitis. Pathology is pending. She is on antibiotics. Vital signs: Temperature 98.3 degrees, pulse 64, respirations 16, blood pressure 115/43. General: Patient is awake, alert, no acute distress. LABORATORY: Hematology, WBC 6.28, hemoglobin 13.0, hematocrit 40.1, MCV 90.9. Chemistry. Sodium 137, potassium 3.6, chloride 96, CO2 29, BUN 12, creatinine 1.5, glucose 115. ASSESSMENT AND PLAN: 1. Chest pain. Patient has had a cardiac workup and cardiac evaluation. 2. EGD that showed gastritis. Continue PPI. Colonoscopy showed colon polyps, colitis and diverticulosis. Patient is receiving antibiotics. Colon pathology results are pending. 3. Gastrointestinal bleeding has resolved. Hemoglobin and hematocrit are stable. Continue current medications. We will follow up on colonoscopy biopsy results. Recommend patient follow up with us as an outpatient. I have discussed this case with Dr. Pastor. Dictated by EZ Durand for Andrew Pastor MD cc: EZ Wooten MD
[2019-05-02 15:46] VITALS: BP 113/72
[2019-05-02] MEDS ORDERED: PREVNAR 13 IM ONE (18:21)
[2019-05-02] MEDS ORDERED: PNEUMOVAX 23 IM ONE (18:30)
[2019-05-02] MEDS: LOVENOX SUBQ SCH (18:35)
--- NOTE | 2019-05-02 20:19 | DISCHARGE SUMMARY ---
ADMISSION DATE: 04/26/2019 DISCHARGE DATE: DISCHARGE DIAGNOSES: 1. Possible gastrointestinal bleeding, ruled out. 2. Acute kidney injury, resolved. 3. Gastroesophageal reflux disease. PROCEDURES: 1. Abdomen and pelvis CT showed a small hiatal hernia, fatty infiltration of the liver, cholecystectomy, colonic diverticulosis, and hysterectomy. 2. Endoscopy procedure showed gastritis, mucosal of the esophagus appeared normal, and duodenal mucosa showed no abnormality. 3. Colonoscopy showed moderate colitis noted in the sigmoid colon, mild nonbleeding diverticulosis noted in the left colon. There was no evidence of angioectasia, AVN. No evidence of ulcers. No evidence of bleeding. The colon mucosa was otherwise normal. 4. Echocardiogram Doppler showed mild concentric left ventricular hypertrophy with estimated left ventricular ejection fraction of 65%. No pericardial effusion. 5. Myocardial perfusion scan, nuclear medicine, showed baseline EKG with sinus rhythm. This exam did not demonstrate any clear evidence of ischemic-related EKG changes or significant arrhythmias during the course of the study. Normal ejection fraction of 79%. HOSPITAL COURSE: This is a 69-year-old, female, who came to the emergency department complaining of 1 day of nausea, vomiting, and started having bright red blood in her stool. She reports it was initially liquid diarrhea that changed to bloody stools, so that is why this patient apparently was admitted to the hospital. Gastroenterology was consulted and procedures were performed as above. The patient reports less diarrhea, not bloody anymore. Also, because of lower extremity edema and shortness of breath, Cardiology was consulted. The exams as mentioned above, so the date of discharge, the Cardiology service signed off. The only positive finding remaining to be cleared is the colitis. We continue with Levaquin and Flagyl. She also has cellulitis in the right arm that will be treated with Levaquin. At this time, patient is going to be discharged in stable condition. She is going to be seen by her primary care physician in a week. DISCHARGE PHYSICAL EXAMINATION: vital signs: Temperature 98.4 degrees, heart rate 71, respiratory rate 16, blood pressure 117/47, O2 saturation 95% on room air. General: This a chronically ill-looking and obese, 69-year-old, female, lying in bed in no acute distress. Cardiovascular: S1, S2 heard. No murmurs, gallops, or rubs. Regular rate and rhythm. Respiratory: Clear bilaterally to auscultation. No work of breathing or using accessory muscles. Abdomen: Soft, nontender to palpation. Bowel sounds present. No organomegaly. Extremities: No clubbing or edema. There is mild cyanosis in both lower extremities. Neurological: The patient is alert and oriented x3. Moves 4 extremities. DISCHARGE DISPOSITION: Home to self-care. FOLLOWUP: 1. With Dr. Rodriguez in a month. 2. With Dr. Duke Kan, her primary care physician, in a week. LIST OF MEDICATIONS: We kept at the following medications: 1. Levaquin 500 mg 1 tablet p.o. daily for 7 days. 2. Flagyl 500 mg 1 tablet p.o. 3 times per day for a week. 3. Furosemide 20 mg 1 tablet p.o. daily. 4. Spironolactone 25 mg 1 tablet p.o. daily. 5. Esomeprazole 40 mg 1 tablet p.o. daily. TIME DISCHARGING THIS PATIENT: 35 minutes. cc: Bryson Dent MD MTDD
== END 2019-05-02 20:00 | disposition home health service (06) | DRG 372 ==
LOC: SUPCPDRO → ED 21:24 → 3N 04-26 01:30 → SUATTDRO 04-26 01:30 → 3N 04-26 02:11
PROVIDERS: ATTEND Internal Medicine
PROC: EN.HEAT (2019-04-29 07:51)